=== PATIENT | male | born 1945 | race Caucasian/White ===

== ENCOUNTER → 2019-02-15 07:50 | Outpatient (CLI) | payer OTHER, SELFPAY ==
--- NOTE | 2019-02-15 | DI.ECHO.S_ITS ---
[facility]---------+ [facility] +---------+ : : [address] : [address] : : : : [id number] : : : : Phone: [phone]+ Echocardiogram Report + + :Name: MARLYN CLAROS Study Date: 02/15/2019 Height: 65 in : :[facility] Weight: 149 lb: : Gender: Male BSA: 1.7 m2 : :: 1945 Age: 73 yrs BP: 95/52 mmHg: :Reason For Study: HISTORY OF [place] : : Performed By: Ced Sheffield : :Referring: MUSHTAQ KLEIN : + + Interpretation Summary The left ventricle is normal in size. Left ventricular ejection fraction is estimated to be 50 +/- 5%. Mid to distal ,mild ,lateral wall hypokinesis is noted There is mild mitral regurgitation. There is mild tricuspid regurgitation. The right ventricular systolic pressure is estimated to be at least 31 mmHg based on an estimated right atrial pressure of 8 mm Hg. Procedure: A two-dimensional transthoracic echocardiogram with color flow and Doppler was performed. The study quality was technically good. Comparison is made with the echocardiogram of 04/16/05. The patient was in normal sinus rhythm during the exam. Left Ventricle: The left ventricle is normal in size. There is normal left ventricular wall thickness. Left ventricular ejection fraction is estimated to be 50 +/- 5%. Mid to distal ,mild ,lateral wall hypokinesis is noted. Right Ventricle: The right ventricle is normal in size and function. Atria: Both atria are normal in size. The interatrial septum is intact with no evidence for an atrial septal defect. Mitral Valve: There is a flat closure plane of the the mitral valve leaflets. There is mild mitral regurgitation. Aortic Valve: The aortic valve is trileaflet. The aortic valve opens well. There is trace aortic regurgitation. Tricuspid Valve: The tricuspid valve is normal in structure and function. There is mild tricuspid regurgitation. The right ventricular systolic pressure is estimated to be at least 31 mmHg based on an estimated right atrial pressure of 8 mm Hg. Pulmonic Valve: The pulmonic valve is normal in structure and function. There is trace pulmonic regurgitation. Great Vessels: The aortic root is normal size. The dimensions of the ascending aorta are normal. The pulmonary artery is normal size. The IVC is dilated (diameter is greater than 2.1 cm) yet it collapses greater than 50% with a sniff. This suggests a right atrial pressure of 8 mm Hg. Pericardium/ Pleura There is no pericardial effusion. There is no pleural effusion. MMode/2D Measurements & Calculations LVIDd: 4.7 cm LVOT diam: 2.4 cm LVIDs: 3.7 cm Ao root diam: 3.4 cm FS: 22.0 % Aortic Jxn: 2.5 cm EPSS: 1.6 cm asc Aorta Diam: 3.1 cm IVSd: 0.84 cm LVPWd: 0.69 cm LV robert. diameter/BSA (cm/m^2): 2.7 LV sys. diameter/BSA (cm/m^2): 2.1 LA dimension: 3.6 cm RA long axis: 4.3 cm LA A2 area: 20.4 cm2 RA area: 10.1 cm2 LA A4 area: 19.0 cm2 RA vol: 20.3 ml LA length (vol): 6.0 cm RA : 11.7 ml/m2 LA vol: 54.8 ml IVC diam: 2.2 cm LA vol index: 31.4 ml/m2 Doppler Measurements & Calculations Ao V2 max: 84.0 cm/sec LVOT Max Tl: 60.8 cm/sec Ao V2 mean: 64.6 cm/sec LV V1 max P.5 mmHg Ao max P.8 mmHg LV V1 VTI: 12.2 cm Ao mean P.8 mmHg APOLINAR(I,D): 3.0 cm2 Ao V2 VTI: 19.0 cm APOLINAR(V,D): 3.4 cm2 sev ratio: 0.64 APOLINAR indexed to BSA (cm^2/m^2): 1.7 MV E max tl: 51.2 cm/sec TR max tl: 241.7 cm/sec MV A max tl: 78.3 cm/sec TR max P.4 mmHg MV E/A: 0.65 PA V2 max: 81.6 cm/sec Med Peak E' Tl: 3.4 cm/sec PA V2 mean: 53.3 cm/sec E/E' med: 15.0 PA mean P.3 mmHg Lat Peak E' Tl: 6.6 cm/sec PA pr(Accel): 46.6 mmHg E/E' lat: 7.7 PA Accel Time: 0.07 sec E/e' average: 11.4 MV dec time: 0.29 sec SV(LVOT): 57.2 ml Reading Physician:05:48 PM
== END ==
PROVIDERS: PCP Internal Medicine; Visit Provider Physician Assistant
DX: I08.1 Rheumatic disorders of both mitral and tricuspid valves (principal); I25.2 Old myocardial infarction
CPT/HCPCS: 93306